=== PATIENT | male | born 1965 | race Caucasian/White ===

== ENCOUNTER 2020-04-05 07:54 | Emergency (ER) | payer BC ==
[~2020-04-05] VITALS: Ht 167.6 cm; Wt 86.0 kg
[2020-04-05 08:56] LABS: BASOPHILS % 0.5 % (0.0-2.0); EOSINOPHILS % 1.2 % (0.0-5.0); HEMATOCRIT. 46.1 % (42.0-52.0); HEMOGLOBIN. 15.8 g/dL (14.0-18.0); LYMPHOCYTES % 22.5 % (20.0-50.0); MEAN CORPUSCULAR HEMOGLOBIN 30.5 pg (28.0-32.0); MEAN CORPUSCULAR VOLUME 89.1 fL (80.0-94.0); MEAN PLATELET VOLUME 8.2 fl (7.4-10.4); MONOCYTES % 5.3 % (2.0-8.0); NEUTROPHILS % 70.5 % (40.0-76.0); PLATELET 223 x1000/uL (130-400); RED BLOOD CELL COUNT 5.17 mill/uL (4.7-6.1); RED CELL DISTRIBUTION WIDTH 12.9 % (11.6-14.6)
[2020-04-05 09:05] LABS: CHLORIDE 102 mEq/L (98-107)
[2020-04-05 10:08] LABS: CHLORIDE 104 mEq/L (98-107)
[2020-04-05 12:49] VITALS: BP 127/71
== END 2020-04-05 12:50 | disposition home or self-care (01) ==
LOC: ER 08:17
DX: R07.89 Other chest pain (principal); M25.512 Pain in left shoulder
CPT/HCPCS: 36415; 71045; 80048; 80053; 83880; 84484; 85025; 93005; 99285